=== PATIENT | female | born 1945 ===

== ENCOUNTER 2017-09-18 00:27 | Inpatient (IN) | payer MEDICARE, OTHER ==
[2017-09-18] VITALS (10 sets, daily range): BP systolic 115–143; BP diastolic 57–97
[~2017-09-18] VITALS: Ht 165.1 cm; Wt 61.2 kg
[~2017-09-18 00:27] MED LIST: CA C1TAB9 PO; L.AC1CAP6 PO; LEVO-3 PO; MULT1CAP59 PO; OMEG100T3 PO; TRAM-420 PO
[2017-09-18 07:42] LABS: INR 0.95
--- NOTE | 2017-09-18 08:48 | HISTORY AND PHYSICAL ---
DATE OF ADMISSION: September 18, 2017 IDENTIFICATION/CHIEF COMPLAINT Izabel is a 71-year-old woman with the chief complaint of left hip pain. HISTORY OF PRESENT ILLNESS Patient has a long-standing history of left hip arthritis, progressively painful and debilitating, and refractory to conservative care. Surgery is indicated to relieve symptoms after failure of nonoperative measures. PAST MEDICAL HISTORY * Hypothyroidism. PAST SURGICAL HISTORY * Contralateral hip replacement. * Right knee replacement. * Left knee scope. ALLERGIES No known drug allergies. CURRENT MEDICATIONS * Levothyroxine 100 mcg p.o. q.day. * Various vitamins. SOCIAL HISTORY Negative for tobacco use. She drinks alcohol, about a glass or two per week. Denies abuse. FAMILY HISTORY Notable for a father with [place] and a mother with hypertension. REVIEW OF SYSTEMS Negative. PHYSICAL EXAMINATION: GENERAL: This in general is a healthy female. HEENT: Normocephalic, atraumatic. NECK: Supple. LUNGS: Clear. HEART: Regular. ABDOMEN: Soft. ORTHOPEDIC EXAM: The left hip is still at limits of rotation with pain reproduced. Hip girdle strength is normal. Skin envelope is intact. Calves are nontender. Neurovascular function is intact. IMAGING Radiographs demonstrate end-stage hip arthritis. ASSESSMENT Left hip degenerative joint disease, progressively painful and debilitating, and refractory to conservative care PLAN Per patient request we are going to proceed with total hip arthroplasty. The nature of the procedure, risks, benefits, the anticipated rehabilitative course were reviewed. The risks include, but are not limited to , major medical or anesthetic complication, infection, neurovascular injury, blood transfusion, stiffness, scarring, fracture, tendon rupture or instability, leg length discrepancy, leg length discrepancy, implant loosening, migration or failure, persistent or recurrent pain, need for additional surgery and other unforeseen. She understands and wishes to proceed. A signed permit was placed in the chart. No guarantees are given or implied. DUNCAN
[2017-09-18] MEDS ORDERED: MIDAZOLAM 2 MG/2 ML VIAL IVP PRN (15:00)
[2017-09-18] MEDS ORDERED: TRANEXAMIC AC 1000 MG/10ML SDV 1,000 MG in DEXTROSE 5% 50 ML BAG 50 ML IV ONE (15:00)
[2017-09-18] MEDS ORDERED: cloNIDine EPIDUR INJ 100MCG/ML 40 MCG, ROPIVACAINE 0.5% 20 ML VIAL 25 ML, EPINEPHrine H... INJ ONE (15:00)
[2017-09-18] MEDS ORDERED: CELECOXIB 200 MG CAP PO ONE (15:00)
[2017-09-18] MEDS ORDERED: NORMOSOL R SOLN(*) 1000 ML BAG 1,000 ML IV PRN ×2 (15:00→17:20)
[2017-09-18] MEDS ORDERED: LIDOCAINE/SOD BICARB 8.4% SYR ID ONE (15:00)
[2017-09-18] MEDS ORDERED: FAMOTIDINE 20 MG TAB PO ONE (15:00)
[2017-09-18] MEDS ORDERED: PREGABALIN 75 MG CAPSULE PO ONE (15:00)
[2017-09-18] MEDS ORDERED: ACETAMINOPHEN 500 MG TAB PO ONE (15:00)
[2017-09-18] MEDS ORDERED: ceFAZolin(*) 1 GM VIAL 1 GM in NS(*) 0.9% 100 ML ADDVANT BAG 100 ML IVPB ONE (15:00)
[2017-09-18] MEDS ORDERED: DEXAMETHASONE SOD PHOS 10MG/ML ONE (15:30)
[2017-09-18] MEDS ORDERED: ONDANSETRON 4 MG/2 ML VIAL ONE (15:30)
[2017-09-18] MEDS ORDERED: LACTATED RINGER 3000 ML BAG IR ONE (16:01)
[2017-09-18] MEDS ORDERED: ACETAMINOPHEN 325 MG TAB PO PRN (17:20)
[2017-09-18] MEDS ORDERED: PROMETHAZINE 25 MG/ML 1 ML AMP IVP PRN (17:20)
[2017-09-18] MEDS ORDERED: BENZOCAINE/MENTHOL 1 EACH LOZG PO PRN (17:20)
[2017-09-18] MEDS ORDERED: FLUSH 10 ML SYR IVP PRN (17:20)
[2017-09-18] MEDS ORDERED: DIAZEPAM 5 MG TAB PO PRN (17:20)
[2017-09-18] MEDS ORDERED: BISACODYL 10 MG SUPP PR PRN (17:20)
[2017-09-18] MEDS ORDERED: ZOLPIDEM TARTRATE 5 MG TAB PO PRN (17:20)
[2017-09-18] MEDS ORDERED: MAGNESIUM HYDROXIDE* 30ML UDCP PO PRN (17:20)
[2017-09-18] MEDS ORDERED: diphenhydrAMINE 50 MG/ML VIAL IVP PRN (17:20)
--- NOTE | 2017-09-18 17:55 | RADIOLOGY IMAGING REPORT ---
[place] [facility] [place] NAME[place] Izabel Freire : 1945 MR: [id number] V: [id number] EXAM DATE: ORDERING PHYSICIAN: RONAL UMANA TECHNOLOGIST: Location: [facility] - [place], [place] Patient: Izabel Freire : 1945 Visit/Account:[id number] Date of Sevice: 09/18/2017 Exam: PELVIS Indication: POST OP LEFT LUIS, RAD Comparison: None available Findings: On the left there are postsurgical changes from recent hip replacement. Two-part cementless TKA is in place without abnormality. On the right there is a cementless two-part TKA. IMPRESSION: 1. Unremarkable postoperative appearance of the left hip Report Dictated By: Gerardo Rader at 09/18/2017 5:50 PM Report E-Signed By: Gerardo Rader at 09/18/2017 5:51 PM WSN:[id number]
--- NOTE | 2017-09-18 20:36 | Hospitalist Consultation ---
History of Present Illness Requesting Physician Dr. Sebastian Reason for Consult Hypothyroid History of Present Illness This patient was admitted to the orthopedic service for hip replacement surgery. It is reported that the surgery went well and was without complication. History Problems: (1) Hypothyroid Home Meds Reported Medications Tramadol Hcl (TRAMADOL HCL) 50 Mg Tablet, 50 MG PO Q4-6H Y for PAIN, TAB 09/12/17 Multivitamin (MULTIVITAMINS) 1 Each Capsule, 1 EACH PO QDAY, CAPSULE 09/12/17 L.acidoph & Paracasei,B.lactis (Probiotic) 1 Each Capsule, PO QDAY 09/12/17 [place]-3 Fatty Acids (OMEGA-3) 100 Mg Tab.chew, PO BID, TAB.CHEW 09/12/17 Calcium/Magnesium (CALCIUM MAGNESIUM TABLET) 1 Each Tablet, 1 EACH PO 3-4XD 09/12/17 Levothyroxine Sodium (LEVOTHYROXINE SODIUM) 100 Mcg Tablet, 100 MCG PO QDAY, TAB 09/12/17 Allergies: Coded Allergies: No Known Drug Allergies (Unverified , 09/12/17) Patient History: FH: CA (myocardial infarction) FH: heart attack FATHER FH: hypertension MOTHER Hx Smoking: No Smoking Status: Never Smoker Caffeine Intake: Tea Caffeine/Cups Per Day: 2 cpd Hx Alcohol Use: Yes (2-3/ week) Alcohol Used: Wine Hx Substance Use Disorder: No Review of Systems All Systems Reviewed/Normal: Yes Exam Vital Signs Vital Signs Date Time Temp Pulse Resp B/P (MAP) Pulse Ox O2 Delivery O2 Flow Rate FiO2 09/18/17 18:50 69 14 96 09/18/17 18:50 97.6 124/75 (91) Nasal Cannula 1.5 Neuro: No Gross deficits Eyes: PERRLA Cardiovascular: Regular Rate and Rhythm Respiratory: Clear to Auscultation Extremities: No Edema Integumentary: No Cyanosis Assessment and Plan Problems: (1) S/P hip replacement Assessment & Plan: She is on aspirin prophylaxis. (2) Hypothyroid Assessment & Plan: She is on chronic treatment with Synthroid. Venous Thromboembolism Antithrombotics Is Pt On Any Antithrombotics?: No MALIA ZUÑIGA DO Sep 18, 2017 20:36
[2017-09-18] MEDS: ceFAZolin(*) 1 GM VIAL 1 GM in NS(*) 0.9% 100 ML ADDVANT BAG 100 ML IVPB SCH (23:25)
[2017-09-18] MEDS: diphenhydrAMINE 25 MG CAP PO PRN (23:38)
[2017-09-19] MEDS: APAP/HYDROCODONE 325/7.5 TAB PO PRN ×5 (00:15→21:39)
[2017-09-19 04:13] VITALS: BP 126/66
[2017-09-19] MEDS ORDERED: OMEG100032 PO (04:50)
[2017-09-19] MEDS ORDERED: TRIPHALA PO (04:52)
[2017-09-19] MEDS ORDERED: CALCIUM/MAGNESIUM PO (04:57)
[2017-09-19] MEDS: LEVOTHYROXINE SOD 0.1 MG TAB PO SCH (05:42)
[2017-09-19 08:00] VITALS: BP 123/59
[2017-09-19] MEDS: CELECOXIB 200 MG CAP PO SCH ×2 (08:02→17:28)
[2017-09-19] MEDS: ceFAZolin(*) 1 GM VIAL 1 GM in NS(*) 0.9% 100 ML ADDVANT BAG 100 ML IVPB SCH ×2 (08:02→15:29)
[2017-09-19] MEDS: ASPIRIN 325 MG TAB PO SCH (08:03)
--- NOTE | 2017-09-19 08:21 | LEVENE THA ---
EVENT DATE: September 18, 2017 SURGEON: Antwan Sebastian MD ANESTHESIOLOGIST: Manohar Riggs MD ANESTHESIA: General plus spinal PRESIDENT CEO & FOUNDER: Shakir Ceja PA-C PREOPERATIVE DIAGNOSIS Left hip degenerative joint disease (DJD). POSTOPERATIVE DIAGNOSIS Left hip degenerative joint disease (DJD). PROCEDURE PERFORMED Left total hip arthroplasty. ESTIMATED BLOOD LOSS 200 mL. DRAINS None. SPECIMENS None. COMPLICATIONS None apparent. IMPLANTS Denisha System with Secur-Fit Plus 132 size 9 stem, 52 mm PSL raised rim shell with a 0 degree X3 liner to accommodate a 36 mm head and a 36 mm Biolox C-Taper aluminum ceramic femoral head with a +2.5 neck length. INDICATIONS The patient is 71-year-old gian with intractable left hip pain related to end- stage arthritis. Surgery is indicated to relieve symptoms after failure of non- operative measures. DESCRIPTION OF PROCEDURE The patient was taken to the operating room and placed supine on the operating table. Spinal block was administered by the anesthesiologist then general anesthesia was induced and antibiotics were administered IV. The patient was positioned in the right lateral decubitus position on a well-padded peg board. All bony prominences and superficial nerves were well padded. The left hip girdle and lower extremity were prepped and draped in the usual sterile fashion for hip arthroplasty. A small incision in posterior lateral approach was made with a 4-inch incision and carried down through the skin and subcutaneous tissue to the tip of the trochanter. The fascia was incised directly over the tip of the trochanter, extended distally in line with the femur and proximally in line with the jose f fibers. The jose f fibers were split bluntly. the trochanteric bursa was excised. The interval between the abductor and external rotator was identified and the abductor mechanism was protected with a blunt Thomas. An L-capsulotomy was performed, releasing the capsule and the external rotators with a horizontal limb just above the piriformis. The capsule and external rotators were tagged with #2-0 Vicryl for later anatomical re- attachment. The femoral head was dislocated. End-stage arthritic change was noted. A 1.57 neck cut was made consistent with preoperative templating. The femoral head was extracted. The femur was then translocated anteriorly. Posterior acetabular retractors were placed with the tips down on bone to avoid injury to critical neurovascular structures. Labrum and pulvinar are excised. A 44 mm reamer was used to medialize the wall of the acetabulum and expanded in 2 mm increments up to 52, where nice rim contact is obtained. Trial reveals good sizing on the 52. 53 is used to open through the acetabulum. The actual shell was impacted in approximately 45 degrees of lateral opening and 15-20 degrees of anteversion using the transverse acetabular ligament, internal bone landmarks and extracorporeal guide. Solid fixation was achieved. No adjunctive fixation was felt to be needed. The shell was lavaged and the liner was locked into the shell. Attention was turned to the femoral preparation. The superior neck was dissected with cookie-cutter. A Charnley awl was used to find the central canal. Tapered reaming was performed up to 9 where good endosteal contact was obtained. Broaching starts and 6 and works up to 9, taking care to lateralize and follow the lytton version of the femur. The 9 has good solid fit and feel. Trial reductions were performed with good congregation of limb length and stability are achievable. The broach is extracted. The actual stem is then seated and seated to the same height. Trial reduction is performed with various neck lengths and the +2.5 is felt to be optimal for congregation of limb length and soft tissue tension stability on [place] taper after lavage to dry the actual Biolox. Head was impacted into position. The joint was reduced. The external rotator capsule was replaced anatomically through drill holes in the posterior femur with a previous placed # 2 Vicryl. The subcutaneous tissue was lavaged and cocktail infiltrated throughout the wound. The deep fascia was closed with #2 Ethibond distally and #2 Vicryl proximally, subcutaneous tissue with 3-0 Vicryl and the skin with surgical kris. Xeroform was applied followed by a sterile dressing and hip wrap. The patient was rolled supine and an abduction pillow was placed. She was awakened from anesthesia and taken to recovery room in stable condition, having tolerated the procedure well. The plan is for a standard total hip arthroplasty protocol, weightbear as tolerated, hip precautions. [facility]
[2017-09-19 08:59] VITALS: Ht 165.1 cm; Wt 61.2 kg
--- NOTE | 2017-09-19 10:13 | Hospitalist Progress Note ---
Subjective Progress Notes Subjective She has no concerns this morning. She had no acute events overnight. Patient Complains of: Cardiovascular: No: Chest Pain Respiratory: No: Shortness of Breath Physical Exam Vital Signs Date Time Temp Pulse Resp B/P (MAP) Pulse Ox O2 Delivery O2 Flow Rate FiO2 09/19/17 08:00 97.7 78 18 123/59 (80) 95 Room Air 09/19/17 04:13 1.0 Intake and Output 09/20/17 06:59 Intake Total 240 ml Balance 240 ml Intake Oral 240 ml General Appearance: Alert, Awake, No Acute Distress, Afebrile Neuro: No Gross deficits Cardiovascular: Regular Rate and Rhythm Respiratory: No Respiratory Distress, Clear to Auscultation GI: Soft and Non-Tender Psych: Alert & Oriented X3, Appropriate Mood & Affect Assessment and Plan Problems: (1) S/P hip replacement Assessment & Plan: She is on aspirin prophylaxis. (2) Hypothyroid Assessment & Plan: She is on chronic treatment with Synthroid. Exam Sepsis Risk: No Definite Risk DAVID ANTHONYP Sep 19, 2017 10:13
[2017-09-19 10:50] VITALS: BP 120/55
[2017-09-19 15:29] VITALS: BP 125/67
[2017-09-19 19:53] VITALS: BP 130/53
[2017-09-19] MEDS: diphenhydrAMINE 25 MG CAP PO PRN (21:36)
[2017-09-20 00:13] VITALS: BP 128/55
[2017-09-20] MEDS: APAP/HYDROCODONE 325/7.5 TAB PO PRN ×3 (02:14→14:55)
[2017-09-20 04:20] VITALS: BP 122/62
[2017-09-20] MEDS: LEVOTHYROXINE SOD 0.1 MG TAB PO SCH (06:17)
[2017-09-20 07:46] VITALS: BP 139/74
[2017-09-20] MEDS ORDERED: ASPI-757 PO (08:18)
[2017-09-20] MEDS: ASPIRIN 325 MG TAB PO SCH (08:46)
[2017-09-20] MEDS: CELECOXIB 200 MG CAP PO SCH (08:47)
[2017-09-20] MEDS ORDERED: HYDR-4308 PO (09:51)
--- NOTE | 2017-09-20 10:04 | Hospitalist Progress Note ---
Subjective Progress Notes Subjective She has no concerns this morning. She states she is ready to go home. Patient Complains of: Cardiovascular: No: Chest Pain Respiratory: No: Shortness of Breath Physical Exam Vital Signs Date Time Temp Pulse Resp B/P (MAP) Pulse Ox O2 Delivery O2 Flow Rate FiO2 09/20/17 07:46 98.1 75 18 139/74 (95) 94 Room Air 09/20/17 04:20 0.5 Intake and Output 09/21/17 06:59 Intake Total 240 ml Balance 240 ml Intake Oral 240 ml General Appearance: Alert, Awake, No Acute Distress, Afebrile Neuro: No Gross deficits Cardiovascular: Regular Rate and Rhythm Respiratory: No Respiratory Distress, Clear to Auscultation GI: Soft and Non-Tender Psych: Alert & Oriented X3, Appropriate Mood & Affect Assessment and Plan Problems: (1) S/P hip replacement Assessment & Plan: She is on aspirin prophylaxis. (2) Hypothyroid Assessment & Plan: She is on chronic treatment with Synthroid. Exam Sepsis Risk: No Definite Risk DAVID ANTHONY TELEGRAPH INSTALLER Sep 20, 2017 10:04
[2017-09-20 11:29] VITALS: BP 152/68
== END 2017-09-20 15:30 | disposition home or self-care (01) | DRG 470 ==
LOC: OR 00:27 → MED 18:50
PROVIDERS: ADMIT Orthopaedic Surgery; ATTEND Orthopaedic Surgery
PROC: 0SRB04Z Replacement of Left Hip Joint with Ceramic on Polyethylene Synthetic Substitute, Open Approach (ICD-10-PCS; principal; 2017-09-18 15:17)
DX: M16.12 Unilateral primary osteoarthritis, left hip (principal); E03.9 Hypothyroidism, unspecified; Z96.642 Presence of left artificial hip joint; Z96.651 Presence of right artificial knee joint
CPT/HCPCS: 36415; 72170; 85610; 86850; 86900; 86901; 97161; 97165; J0171; J0690; J0735; J1100; J1885; J2250; J2405; J2795; J7050; J7060; Q0163